=== PATIENT | female | born 1940 | race Caucasian/White ===

== ENCOUNTER → 2022-05-28 13:13 | Outpatient (CLI) | payer MEDICARE, OTHER, SELFPAY ==
--- NOTE | 2022-05-28 13:28 | XR_ITS ---
FINAL REPORT CLINICAL HISTORY: dyspnea FINDINGS: Two views of the chest were obtained. The heart size and pulmonary vascularity are within normal limits. The mediastinum is normal. The lungs are hyperinflated consistent with COPD. There is mild scarring. There is no pneumothorax. The bony thorax is intact. IMPRESSION: No acute cardiopulmonary process. Reviewed, Interpreted and Dictated by Cr Fink III, MD Transcribed by Uvaldo Workman Authenticated and [facility]
[2022-05-28 14:45] VITALS: PULSE 87; PULSE 90
== END ==
PROVIDERS: Visit Provider Internal Medicine
DX: R06.00 Dyspnea, unspecified (principal); R07.9 Chest pain, unspecified; R94.31 Abnormal electrocardiogram [ECG] [EKG]; G47.33 Obstructive sleep apnea (adult) (pediatric); R40.0 Somnolence
CPT/HCPCS: 71046; 94060; 94640; 94727; 94729; G0399

== ENCOUNTER → 2022-12-11 13:55 | Outpatient (CLI) | payer MEDICARE, OTHER, SELFPAY ==
--- NOTE | 2022-12-11 13:56 | CT_ITS ---
FINAL REPORT TECHNIQUE: Axial imaging of the chest was obtained without contrast. Reformatted images were also obtained and reviewed.This study was performed with techniques to keep radiation doses as low as reasonably achievable, (ALARA). Individualized dose reduction technique using automated exposure control or adjustment of mA and/or kV according to the patient's size were employed. CLINICAL HISTORY: Nodule F/U COMPARISON: 10/22/2021 FINDINGS: There are severe coronary artery calcifications. There is no axillary adenopathy. There is no hilar or mediastinal mass or adenopathy. Heart size is normal. There is no pericardial or pleural effusion. There is severe emphysema. Mild pulmonary scarring is seen. A lobular soft tissue nodule is seen in the posterior right upper lobe measuring 11 x 8 mm, stable from prior exam. There are scattered calcified granulomas. Limited imaging of the upper abdomen is without acute abnormality. IMPRESSION: Stable 11 x 8 mm right upper lobe nodule. Severe coronary artery calcifications. Reviewed, Interpreted and Dictated by Cr Fink III, MD Transcribed by Kell Del Rio Authenticated and [facility]
== END ==
PROVIDERS: PCP Specialist; Visit Provider Internal Medicine Pulmonary Disease
DX: R91.8 Other nonspecific abnormal finding of lung field (principal)
CPT/HCPCS: 71250